=== PATIENT | female | born 1950 | race African-American/Black ===

== ENCOUNTER 2017-08-15 04:06 | Inpatient (IN) | payer MEDICARE, OTHER ==
[~2017-08-15] VITALS: Ht 160 cm; Wt 60.8 kg
[2017-08-15 04:36] LABS: Basophils # (auto) 0 uL; Basophils % (auto) 0.6 % (0.0-2.0); Eosinophils # (auto) 0.2 uL; Eosinophils % (auto) 1.9 % (0.0-7.0); Hematocrit 35.4 % (36.0-46.0); Hemoglobin 11.5 g/dL (12.2-16.2); Lymphocytes # (auto) 1.7 uL; Lymphocytes % (auto) 21.9 % (10.0-50.0); Mean Corpuscular Hemoglobin 27.9 pg (28.0-32.0); Mean Corpuscular Hgb Conc. 32.4 g/dL (32.0-36.0); Mean Corpuscular Volume 86.2 fL (80.0-100.0); Monocytes # (auto) 0.9 uL; Neutrophils % (auto) 63.6 % (37.0-80.0); Nucleated Red Blood Cells % 0.2 %; Platelet Count (auto) 125 10^3/uL (140-450); Red Cell Distribution Width 14.2 % (11.8-14.3); White Blood Cell 7.8 10^3/uL (4.4-10.8)
[2017-08-15 04:52] LABS: INR 1.16 (0.9-1.15); Partial Thromboplastin Time 26.5 sec (22.64-33.71); Prothrombin Time 12.7 sec (9.37-12.3)
[2017-08-15 04:54] LABS: Albumin 3.4 g/dL (3.4-5.0); BUN/Creatinine Ratio 19.1; Magnesium 2.3 mg/dL (1.6-2.6)
[2017-08-15 04:58] LABS: Bilirubin, Total 0.6 mg/dL (0.2-1.0); Total Protein 7.3 g/dL (6.4-8.2)
[2017-08-15] MEDS ORDERED: NALBUPHINE HCL 10 MG/1ml INJECTION IV ONE (05:45)
[2017-08-15] MEDS ORDERED: ONDANSETRON HCL 4 MG/2 ML VIAL IV ONE (05:45)
[2017-08-15] MEDS ORDERED: SODIUM CHLORIDE 0.9% 500 ML IV ONE (07:45)
[2017-08-15] MEDS ORDERED: FUROSEMIDE 40 MG/4 ML VIAL IV ONE (08:15)
[2017-08-15] MEDS ORDERED: ONDANSETRON HCL 4 MG/2 ML VIAL IV PRN (09:30)
[2017-08-15] MEDS ORDERED: NITROGLYCERIN 0.4 MG SL TAB SL PRN (09:30)
[2017-08-15] MEDS ORDERED: BUMETANIDE (0.25MG/ML) 4 ML VIAL IV ONE (09:30)
[2017-08-15] MEDS ORDERED: MORPHINE SULFATE 4 MG/ML SYR/VIAL IV PRN ×2 (09:30)
[2017-08-15] MEDS ORDERED: hydrALAZINE HCL 20 MG/ML VL IV PRN (09:30)
[2017-08-15] MEDS ORDERED: POTASSIUM CHL 10% (20 MEQ/15ML) 15ml ORAL SOLN PO ONE (09:30)
[2017-08-15] MEDS ORDERED: DEXTROSE (50%) 50ML SYRG IV PRN (09:30)
[2017-08-15 09:33] LABS: Urine Bacteria FEW /hpf (None Seen); Urine Blood Negative /uL (Negative); Urine Hyaline Cast FEW /lpf (0 - 2); Urine Mucus FEW (None Seen); Urine Specific Gravity 1.015 (1.001-1.035); Urine WBC 5 /hpf (0 - 5)
[2017-08-15] MEDS ORDERED: TRAZ100T2 PO (09:34)
[2017-08-15] MEDS ORDERED: CARV3.1240 PO (09:34)
[2017-08-15] MEDS ORDERED: FER325T PO (09:34)
[2017-08-15] MEDS ORDERED: ARIP1TAB15 PO (09:34)
[2017-08-15] MEDS ORDERED: FLUO20CA19 PO (09:34)
[2017-08-15] MEDS ORDERED: ATOR10TA52 PO (09:34)
[2017-08-15] MEDS ORDERED: APIX5TAB OR (09:34)
[2017-08-15] MEDS ORDERED: LISI2.5T47 PO (09:34)
[2017-08-15] MEDS ORDERED: FURO40TA4 PO (09:34)
[2017-08-15] MEDS ORDERED: ALB5IS NEB (09:34)
[2017-08-15] MEDS ORDERED: PATIENTS OWN MEDICATION (Atorvastatin Calcium 1 TAB) PO SCH (10:00)
[2017-08-15] MEDS ORDERED: LISINOPRIL 5 MG TAB PO SCH (10:00)
[2017-08-15] MEDS ORDERED: FLUOXETINE HCL PO SCH (10:00)
[2017-08-15] MEDS ORDERED: hydrALAZINE HCL 10 MG TAB PO ONE (10:00)
[2017-08-15] MEDS: ARIPIPRAZOLE 30 MG PO SCH (10:32)
[2017-08-15] MEDS: CARVEDILOL 3.125 MG TAB PO SCH ×2 (10:33→21:44)
[2017-08-15] MEDS ORDERED: BUMETANIDE (0.25 MG/ML) INJ 10ML IV ONE (10:45)
[2017-08-15] MEDS: FERROUS SULFATE 325 MG TAB PO SCH ×2 (10:47→21:42)
[2017-08-15] MEDS: FLUoxetine HCL 20 MG CAP PO SCH (10:48)
[2017-08-15] MEDS: APIXABAN 5 MG TAB PO SCH ×2 (10:48→21:43)
[2017-08-15] MEDS: InsuLIN REG 1unit/0.01ml Soln (100units/ml) SC SCH ×3 (11:30→22:00)
[2017-08-15] MEDS: ACCU-CHEK COMFORT CURVE STRIP VI SCH ×3 (11:35→22:26)
[2017-08-15] MEDS: ALBUTEROL SULF 2.5 MG/0.5ML(0.5%) NEB SOLN NEB SCH ×2 (12:00→18:00)
[2017-08-15] MEDS: IPRATROPIUM BROM 0.5 MG/2.5ML INH SOL NEB SCH ×2 (12:00→18:00)
[2017-08-15 13:21] LABS: Cholesterol 162 mg/dL (< 200); HDL Cholesterol 47 mg/dL (40-59); LDL Cholesterol 110 mg/dL (< 100); Triglycerides 95 mg/dL (< 150)
[2017-08-15] MEDS ORDERED: PATIENTS OWN MEDICATION (Trazodone Hcl 1 TAB) PO SCH (18:00)
[2017-08-15 18:20] VITALS: BP 106/75
[2017-08-15 19:29] VITALS: BP 151/82
[2017-08-15 20:00] VITALS: BP 133/82
[2017-08-15] MEDS: ATORVASTATIN 20 MG TAB PO SCH (21:42)
[2017-08-15] MEDS: traZODone HCL 50 MG TAB PO SCH (21:44)
[2017-08-15 22:00] VITALS: BP_SYST 105; BP_SYST 133; BP_DIAS 54; BP_DIAS 82
[2017-08-16] VITALS (7 sets, daily range): BP systolic 104–133; BP diastolic 57–82
[2017-08-16] MEDS: IPRATROPIUM BROM 0.5 MG/2.5ML INH SOL NEB SCH ×5 (00:08→23:56)
[2017-08-16] MEDS: ALBUTEROL SULF 2.5 MG/0.5ML(0.5%) NEB SOLN NEB SCH ×5 (00:08→23:56)
[2017-08-16 06:19] LABS: Basophils # (auto) 0 uL; Basophils % (auto) 0.4 % (0.0-2.0); Eosinophils # (auto) 0.4 uL; Eosinophils % (auto) 7.6 % (0.0-7.0); Hematocrit 33.3 % (36.0-46.0); Hemoglobin 10.9 g/dL (12.2-16.2); Lymphocytes # (auto) 1.3 uL; Mean Corpuscular Hemoglobin 28.4 pg (28.0-32.0); Mean Corpuscular Hgb Conc. 32.7 g/dL (32.0-36.0); Mean Corpuscular Volume 86.9 fL (80.0-100.0); Monocytes # (auto) 0.7 uL; Monocytes % (auto) 12.6 % (0.0-12.0); Neutrophils # (auto) 3.4 uL; Neutrophils % (auto) 57.4 % (37.0-80.0); Platelet Count (auto) 125 10^3/uL (140-450); Red Blood Cells 3.83 10^6/uL (4.0-5.20); Red Cell Distribution Width 14.9 % (11.8-14.3); White Blood Cell 5.9 10^3/uL (4.4-10.8)
[2017-08-16 06:30] LABS: Potassium 4.2 mmol/L (3.5-5.1)
[2017-08-16] MEDS: ACCU-CHEK COMFORT CURVE STRIP VI SCH ×4 (06:41→22:18)
[2017-08-16] MEDS: InsuLIN REG 1unit/0.01ml Soln (100units/ml) SC SCH ×4 (06:41→22:00)
[2017-08-16 06:42] LABS: Calcium 8.9 mg/dL (8.5-10.1)
[2017-08-16] MEDS: FUROSEMIDE 40 MG/4 ML VIAL IV SCH (09:25)
[2017-08-16] MEDS: ARIPIPRAZOLE 30 MG PO SCH (09:26)
[2017-08-16] MEDS: FERROUS SULFATE 325 MG TAB PO SCH ×2 (09:26→22:15)
[2017-08-16] MEDS: APIXABAN 5 MG TAB PO SCH ×2 (09:27→22:18)
[2017-08-16] MEDS: FLUoxetine HCL 20 MG CAP PO SCH (09:27)
[2017-08-16] MEDS: CARVEDILOL 3.125 MG TAB PO SCH ×2 (09:27→22:17)
[2017-08-16] MEDS: HYDROcodone-ACET 5/325MG TAB PO PRN (09:35)
[2017-08-16] MEDS ORDERED: INFLUENZA QUAD 2017-2018 0.5 ML SYRG IM ONE ×2 (09:57→19:00)
[2017-08-16 11:10] LABS: Creatinine, Urine 103 mg/dL (30.0-125.0); Sodium Urine 96 mmol/L (40-220)
[2017-08-16] MEDS ORDERED: PNEUMOCOCCAL VACC POLYS 25 MCG/0.5 ML VIAL IM ONE (19:00)
[2017-08-16] MEDS: ATORVASTATIN 20 MG TAB PO SCH (22:18)
[2017-08-16] MEDS: traZODone HCL 50 MG TAB PO SCH (22:18)
[2017-08-17 04:31] VITALS: BP 104/71
[2017-08-17] MEDS: IPRATROPIUM BROM 0.5 MG/2.5ML INH SOL NEB SCH ×2 (05:48→12:02)
[2017-08-17] MEDS: ALBUTEROL SULF 2.5 MG/0.5ML(0.5%) NEB SOLN NEB SCH ×2 (05:48→12:02)
[2017-08-17] MEDS: ACCU-CHEK COMFORT CURVE STRIP VI SCH ×3 (06:57→17:00)
[2017-08-17] MEDS: InsuLIN REG 1unit/0.01ml Soln (100units/ml) SC SCH ×3 (06:57→17:00)
[2017-08-17] MEDS: HYDROcodone-ACET 5/325MG TAB PO PRN (06:58)
[2017-08-17 08:46] VITALS: BP 102/71
[2017-08-17] MEDS: FUROSEMIDE 40 MG/4 ML VIAL IV SCH (09:24)
[2017-08-17] MEDS: FERROUS SULFATE 325 MG TAB PO SCH (09:24)
[2017-08-17] MEDS: APIXABAN 5 MG TAB PO SCH (09:25)
[2017-08-17] MEDS: FLUoxetine HCL 20 MG CAP PO SCH (09:25)
[2017-08-17] MEDS: CARVEDILOL 3.125 MG TAB PO SCH (09:26)
[2017-08-17] MEDS: ARIPIPRAZOLE 30 MG PO SCH (09:26)
[2017-08-17 12:12] VITALS: BP 102/71
[2017-08-17 12:28] VITALS: BP 92/72
== END 2017-08-17 17:30 | disposition home or self-care (01) | DRG 291 ==
LOC: ER 04:10 → TELE 04:11 → TELE-WESTW 14:40 → TELE-EAST 18:35
PROVIDERS: ADMIT Internal Medicine; ATTEND Internal Medicine
DX: I13.0 Hypertensive heart and chronic kidney disease with heart failure and stage 1 through stage 4 chronic kidney disease, or unspecified chronic kidney disease (principal); I50.23 Acute on chronic systolic (congestive) heart failure; J96.20 Acute and chronic respiratory failure, unspecified whether with hypoxia or hypercapnia; E11.22 Type 2 diabetes mellitus with diabetic chronic kidney disease; N18.3 Chronic kidney disease, stage 3 (moderate); D50.9 Iron deficiency anemia, unspecified; J44.9 Chronic obstructive pulmonary disease, unspecified; E78.5 Hyperlipidemia, unspecified; F32.9 Major depressive disorder, single episode, unspecified; G89.29 Other chronic pain; M54.9 Dorsalgia, unspecified; Z79.01 Long term (current) use of anticoagulants; I25.2 Old myocardial infarction; Z86.711 Personal history of pulmonary embolism; Z86.718 Personal history of other venous thrombosis and embolism; Z99.81 Dependence on supplemental oxygen; Z90.710 Acquired absence of both cervix and uterus; Z95.810 Presence of automatic (implantable) cardiac defibrillator
CPT/HCPCS: 36415; 71045; 80048; 80053; 80061; 81001; 82570; 82962; 83036; 83735; 83880; 84300; 84443; 84484; 85025; 85379; 85610; 85730; 93005; 93306; 94640; 96361; 96374; 96375; J2405

== ENCOUNTER 2017-08-25 06:53 | Emergency (ER) | payer MEDICARE, OTHER ==
[~2017-08-25] VITALS: Ht 160 cm; Wt 72.6 kg
[~2017-08-25 06:53] MED LIST: ALB5IS NEB; APIX5TAB OR; ARIP1TAB15 PO; ATOR10TA52 PO; CARV3.1240 PO; FER325T PO; FLUO20CA19 PO; FURO40TA4 PO; LISI2.5T47 PO; TRAZ100T2 PO
[2017-08-25 07:58] LABS: Basophils # (auto) 0 uL; Basophils % (auto) 0.3 % (0.0-2.0); Eosinophils # (auto) 0.2 uL; Eosinophils % (auto) 2.1 % (0.0-7.0); Hematocrit 35.3 % (36.0-46.0); Hemoglobin 11.6 g/dL (12.2-16.2); Lymphocytes # (auto) 1.5 uL; Lymphocytes % (auto) 15.2 % (10.0-50.0); Mean Corpuscular Hemoglobin 28.1 pg (28.0-32.0); Mean Corpuscular Hgb Conc. 32.8 g/dL (32.0-36.0); Mean Corpuscular Volume 85.6 fL (80.0-100.0); Monocytes # (auto) 1.6 uL; Monocytes % (auto) 15.5 % (0.0-12.0); Neutrophils # (auto) 6.7 uL; Neutrophils % (auto) 66.9 % (37.0-80.0); Platelet Count (auto) 133 10^3/uL (140-450); Red Blood Cells 4.12 10^6/uL (4.0-5.20); Red Cell Distribution Width 15.5 % (11.8-14.3); White Blood Cell 10.1 10^3/uL (4.4-10.8)
[2017-08-25 08:11] LABS: Albumin 3.5 g/dL (3.4-5.0); Calcium 8.8 mg/dL (8.5-10.1); Potassium 3.6 mmol/L (3.5-5.1)
[2017-08-25 08:13] LABS: BUN/Creatinine Ratio 16.2
[2017-08-25 08:16] LABS: Bilirubin, Total 0.6 mg/dL (0.2-1.0); Total Protein 7.2 g/dL (6.4-8.2)
[2017-08-25] MEDS ORDERED: FUROSEMIDE 20 MG/2 ML VIAL IV ONE (09:15)
[2017-08-25 11:43] VITALS: BP 152/95
== END 2017-08-25 13:19 | disposition home or self-care (01) ==
LOC: ER 06:53
DX: I11.0 Hypertensive heart disease with heart failure (principal); I50.23 Acute on chronic systolic (congestive) heart failure; G89.4 Chronic pain syndrome; J44.9 Chronic obstructive pulmonary disease, unspecified; Z86.711 Personal history of pulmonary embolism; Z79.899 Other long term (current) drug therapy
CPT/HCPCS: 36415; 80053; 83880; 85025; 93005; 96374; 99285; J1940

== ENCOUNTER 2017-09-09 17:45 | Inpatient (IN) | payer MEDICARE, OTHER ==
[~2017-09-09] VITALS: Ht 160 cm; Wt 82.7 kg
[2017-09-09 18:50] LABS: Basophils # (auto) 0 uL; Basophils % (auto) 0.5 % (0.0-2.0); Eosinophils # (auto) 0.1 uL; Eosinophils % (auto) 1.6 % (0.0-7.0); Hematocrit 32.6 % (36.0-46.0); Hemoglobin 10.7 g/dL (12.2-16.2); Lymphocytes # (auto) 1.1 uL; Lymphocytes % (auto) 15.5 % (10.0-50.0); Mean Corpuscular Hgb Conc. 32.8 g/dL (32.0-36.0); Mean Corpuscular Volume 85.4 fL (80.0-100.0); Monocytes # (auto) 0.6 uL; Monocytes % (auto) 9.2 % (0.0-12.0); Neutrophils % (auto) 73.2 % (37.0-80.0); Nucleated Red Blood Cells % 0.2 %; Platelet Count (auto) 139 10^3/uL (140-450); Red Blood Cells 3.81 10^6/uL (4.0-5.20); Red Cell Distribution Width 14.8 % (11.8-14.3); White Blood Cell 6.9 10^3/uL (4.4-10.8)
[2017-09-09 18:54] LABS: INR 1.23 (0.9-1.15); Partial Thromboplastin Time 28.6 sec (22.64-33.71); Prothrombin Time 13.4 sec (9.37-12.3)
[2017-09-09 19:19] LABS: BUN/Creatinine Ratio 16.1; Potassium 3.7 mmol/L (3.5-5.1)
[2017-09-09 19:20] LABS: Albumin 3.4 g/dL (3.4-5.0); Bilirubin, Total 1.1 mg/dL (0.2-1.0); Calcium 8.6 mg/dL (8.5-10.1); Total Protein 7.4 g/dL (6.4-8.2)
[2017-09-09] MEDS ORDERED: ALBUTEROL SULF 2.5 MG/0.5ML(0.5%) NEB SOLN HHN ONE (20:00)
[2017-09-09] MEDS ORDERED: IPRATROPIUM BROM 0.5 MG/2.5ML INH SOL HHN ONE (20:00)
[2017-09-09] MEDS ORDERED: methylPREDNISolone SOD SUCC 125 MG/2 ML VL IV ONE (20:00)
[2017-09-09] MEDS ORDERED: MORPHINE SULFATE 4 MG/ML SYR/VIAL IV ONE (20:45)
[2017-09-09] MEDS ORDERED: ONDANSETRON HCL 4 MG/2 ML VIAL IV ONE (20:45)
[2017-09-09] MEDS ORDERED: cefTRIAXone 1GM/10ml IVPUSH 10 ML IV ONE (21:15)
[2017-09-09] MEDS ORDERED: NITROGLYCERIN 0.4 MG SL TAB SL PRN (21:30)
[2017-09-09] MEDS ORDERED: MORPHINE SULFATE 4 MG/ML SYR/VIAL IV PRN (21:30)
[2017-09-09] MEDS ORDERED: ALBUTEROL SULF 2.5 MG/0.5ML(0.5%) NEB SOLN NEB PRN (21:30)
[2017-09-09] MEDS ORDERED: AZITHROMYCIN 500MG/ 250ML 250 ML IV ONE (21:30)
[2017-09-09] MEDS ORDERED: ACETAMINOPHEN 325 MG TAB PO PRN (21:30)
[2017-09-09] MEDS ORDERED: TEMAZEPAM 15 MG CAP PO PRN (21:30)
[2017-09-09] MEDS ORDERED: FUROSEMIDE 20 MG/2 ML VIAL IV ONE (21:30)
[2017-09-09] MEDS: ATORVASTATIN 20 MG TAB PO SCH (22:00)
[2017-09-09] MEDS: CARVEDILOL 3.125 MG TAB PO SCH (22:00)
[2017-09-09] MEDS: APIXABAN 5 MG TAB PO SCH (22:00)
[2017-09-09 23:15] VITALS: BP 127/92
[2017-09-10] VITALS (8 sets, daily range): BP systolic 97–130; BP diastolic 58–87
[2017-09-10] MEDS ORDERED: DEXTROSE (50%) 50ML SYRG IV PRN (00:15)
[2017-09-10 05:27] LABS: Basophils # (auto) 0 uL; Basophils % (auto) 0.1 % (0.0-2.0); Eosinophils # (auto) 0 uL; Hematocrit 34.1 % (36.0-46.0); Lymphocytes # (auto) 0.6 uL; Lymphocytes % (auto) 9.8 % (10.0-50.0); Mean Corpuscular Hemoglobin 27.8 pg (28.0-32.0); Mean Corpuscular Hgb Conc. 32.3 g/dL (32.0-36.0); Mean Corpuscular Volume 85.9 fL (80.0-100.0); Monocytes # (auto) 0.1 uL; Monocytes % (auto) 1.1 % (0.0-12.0); Neutrophils # (auto) 5.8 uL; Nucleated Red Blood Cells % 0.1 %; Platelet Count (auto) 146 10^3/uL (140-450); Red Blood Cells 3.97 10^6/uL (4.0-5.20); Red Cell Distribution Width 14.8 % (11.8-14.3); White Blood Cell 6.5 10^3/uL (4.4-10.8)
[2017-09-10 05:43] LABS: Albumin 3.4 g/dL (3.4-5.0); BUN/Creatinine Ratio 18.8; Bilirubin, Total 0.6 mg/dL (0.2-1.0); Calcium 8.6 mg/dL (8.5-10.1); Potassium 4.4 mmol/L (3.5-5.1); Total Protein 7.5 g/dL (6.4-8.2)
[2017-09-10] MEDS ORDERED: FUROSEMIDE 40 MG TAB PO SCH (06:00)
[2017-09-10] MEDS: InsuLIN REG 1unit/0.01ml Soln (100units/ml) SC SCH ×3 (06:00→17:36)
[2017-09-10] MEDS: ACCU-CHEK COMFORT CURVE STRIP VI SCH ×3 (06:15→17:36)
[2017-09-10] MEDS: APIXABAN 5 MG TAB PO SCH ×2 (09:25→21:58)
[2017-09-10] MEDS: PANTOPRAZOLE 40 MG TAB PO SCH (09:26)
[2017-09-10] MEDS: CARVEDILOL 3.125 MG TAB PO SCH ×2 (09:26→21:57)
[2017-09-10] MEDS: LISINOPRIL 5 MG TAB PO SCH (09:27)
[2017-09-10] MEDS ORDERED: ENOXAPARIN SOD 30 MG/0.3 ML SYRINGE SC SCH (10:00)
[2017-09-10 11:31] LABS: Urine Bacteria NONE SEEN /hpf (None Seen); Urine Blood Negative /uL (Negative); Urine Hyaline Cast MOD /lpf (0 - 2); Urine Specific Gravity 1.008 (1.001-1.035); Urine WBC 5 /hpf (0 - 5)
[2017-09-10] MEDS: OSELTAMIVIR 30 MG CAP PO SCH (17:35)
[2017-09-10] MEDS: FUROSEMIDE 40 MG/4 ML VIAL IV SCH (17:35)
[2017-09-10] MEDS: cefTRIAXone 1GM/10ml IVPUSH 10 ML IV SCH (21:57)
[2017-09-10] MEDS: HYDROcodone-ACET 5/325MG TAB PO PRN (21:58)
[2017-09-10] MEDS: ATORVASTATIN 20 MG TAB PO SCH (21:58)
[2017-09-10] MEDS: AZITHROMYCIN 500MG/ 250ML 250 ML IV SCH (21:58)
[2017-09-10] MEDS ORDERED: OSELTAMIVIR 75 MG CAP PO SCH (22:00)
[2017-09-11] MEDS: ACCU-CHEK COMFORT CURVE STRIP VI SCH ×5 (00:38→23:26)
[2017-09-11] MEDS: InsuLIN REG 1unit/0.01ml Soln (100units/ml) SC SCH ×5 (00:38→23:25)
[2017-09-11 05:00] VITALS: BP 95/64
[2017-09-11] MEDS: FUROSEMIDE 40 MG/4 ML VIAL IV SCH (05:55)
[2017-09-11 08:01] VITALS: BP 95/64
[2017-09-11 08:08] VITALS: BP 94/71
[2017-09-11] MEDS: LISINOPRIL 5 MG TAB PO SCH (09:44)
[2017-09-11] MEDS: POTASSIUM CHL 10% (20 MEQ/15ML) 15ml ORAL SOLN PO SCH (10:00)
[2017-09-11] MEDS ORDERED: SODIUM CHLORIDE 0.9% 1,000 ML IV ONE ×2 (10:00)
[2017-09-11] MEDS: APIXABAN 5 MG TAB PO SCH ×2 (10:33→22:05)
[2017-09-11] MEDS: CARVEDILOL 3.125 MG TAB PO SCH ×2 (10:33→22:05)
[2017-09-11] MEDS: OSELTAMIVIR 30 MG CAP PO SCH (10:34)
[2017-09-11] MEDS: PANTOPRAZOLE 40 MG TAB PO SCH (10:34)
[2017-09-11 11:25] VITALS: BP 109/46
[2017-09-11 17:10] VITALS: BP 92/72
[2017-09-11] MEDS: HYDROcodone-ACET 5/325MG TAB PO PRN ×2 (17:47→23:26)
[2017-09-11 22:00] VITALS: BP 118/70
[2017-09-11] MEDS: cefTRIAXone 1GM/10ml IVPUSH 10 ML IV SCH (22:04)
[2017-09-11] MEDS: AZITHROMYCIN 500MG/ 250ML 250 ML IV SCH (22:04)
[2017-09-11] MEDS: ATORVASTATIN 20 MG TAB PO SCH (22:05)
[2017-09-12 05:00] VITALS: BP 104/67
[2017-09-12] MEDS: ACCU-CHEK COMFORT CURVE STRIP VI SCH ×4 (05:42→23:57)
[2017-09-12] MEDS: InsuLIN REG 1unit/0.01ml Soln (100units/ml) SC SCH ×4 (05:42→23:56)
[2017-09-12 08:00] VITALS: BP 118/70
[2017-09-12 09:27] VITALS: BP 130/75
[2017-09-12] MEDS: POTASSIUM CHL 10% (20 MEQ/15ML) 15ml ORAL SOLN PO SCH (10:00)
[2017-09-12] MEDS: LISINOPRIL 5 MG TAB PO SCH (11:37)
[2017-09-12] MEDS: PANTOPRAZOLE 40 MG TAB PO SCH (11:37)
[2017-09-12] MEDS: CARVEDILOL 3.125 MG TAB PO SCH ×2 (11:38→22:57)
[2017-09-12] MEDS: APIXABAN 5 MG TAB PO SCH ×2 (11:38→22:58)
[2017-09-12] MEDS: OSELTAMIVIR 30 MG CAP PO SCH (11:38)
[2017-09-12 12:10] VITALS: BP 117/88
[2017-09-12 16:30] VITALS: BP 125/77
[2017-09-12] MEDS: ALBUTEROL SULF 2.5 MG/0.5ML(0.5%) NEB SOLN NEB PRN (20:50)
[2017-09-12] MEDS: IPRATROPIUM BROM 0.5 MG/2.5ML INH SOL NEB PRN (20:50)
[2017-09-12 22:00] VITALS: BP 119/74
[2017-09-12] MEDS: cefTRIAXone 1GM/10ml IVPUSH 10 ML IV SCH (22:00)
[2017-09-12] MEDS: AZITHROMYCIN 500MG/ 250ML 250 ML IV SCH (22:56)
[2017-09-12] MEDS: ATORVASTATIN 20 MG TAB PO SCH (22:57)
[2017-09-13] MEDS ORDERED: MORPHINE SULFATE 4 MG/ML SYR/VIAL IV ONE (00:30)
[2017-09-13 05:00] VITALS: BP 106/72
[2017-09-13] MEDS: InsuLIN REG 1unit/0.01ml Soln (100units/ml) SC SCH ×3 (06:00→18:43)
[2017-09-13] MEDS: ACCU-CHEK COMFORT CURVE STRIP VI SCH ×3 (06:00→18:42)
[2017-09-13 06:47] LABS: Basophils # (auto) 0 uL; Basophils % (auto) 0.4 % (0.0-2.0); Eosinophils # (auto) 0 uL; Eosinophils % (auto) 0.2 % (0.0-7.0); Hematocrit 32.2 % (36.0-46.0); Hemoglobin 10.4 g/dL (12.2-16.2); Lymphocytes # (auto) 1.3 uL; Lymphocytes % (auto) 13.1 % (10.0-50.0); Mean Corpuscular Hemoglobin 28.3 pg (28.0-32.0); Mean Corpuscular Hgb Conc. 32.3 g/dL (32.0-36.0); Mean Corpuscular Volume 87.5 fL (80.0-100.0); Monocytes # (auto) 1.7 uL; Monocytes % (auto) 16.7 % (0.0-12.0); Neutrophils # (auto) 7.1 uL; Neutrophils % (auto) 69.6 % (37.0-80.0); Nucleated Red Blood Cells % 0.1 %; Platelet Count (auto) 157 10^3/uL (140-450); Red Blood Cells 3.68 10^6/uL (4.0-5.20); Red Cell Distribution Width 15.8 % (11.8-14.3); White Blood Cell 10.2 10^3/uL (4.4-10.8)
[2017-09-13 07:02] LABS: Albumin 3.2 g/dL (3.4-5.0); BUN/Creatinine Ratio 23.7; Calcium 8.5 mg/dL (8.5-10.1)
[2017-09-13 07:10] LABS: Bilirubin, Total 0.3 mg/dL (0.2-1.0); Total Protein 6.5 g/dL (6.4-8.2)
[2017-09-13 07:39] VITALS: BP 106/72
[2017-09-13 08:18] VITALS: BP 113/84
[2017-09-13] MEDS: POTASSIUM CHL 10% (20 MEQ/15ML) 15ml ORAL SOLN PO SCH (09:31)
[2017-09-13] MEDS: OSELTAMIVIR 30 MG CAP PO SCH (09:35)
[2017-09-13] MEDS: PANTOPRAZOLE 40 MG TAB PO SCH (09:35)
[2017-09-13] MEDS: APIXABAN 5 MG TAB PO SCH ×2 (09:36→22:54)
[2017-09-13] MEDS: VALSARTAN 80 MG TAB PO SCH (09:37)
[2017-09-13] MEDS: CARVEDILOL 3.125 MG TAB PO SCH ×2 (09:38→22:00)
[2017-09-13] MEDS ORDERED: LISINOPRIL 5 MG TAB PO SCH (10:00)
[2017-09-13 12:00] VITALS: BP 107/72
[2017-09-13 17:00] VITALS: BP 109/72
[2017-09-13 21:21] VITALS: BP 110/74
[2017-09-13] MEDS: DOXYCYCLINE 100 MG TAB/CAP PO SCH (22:53)
[2017-09-13] MEDS: ATORVASTATIN 20 MG TAB PO SCH (22:54)
[2017-09-13] MEDS: cefTRIAXone 1GM/10ml IVPUSH 10 ML IV SCH (22:54)
[2017-09-13] MEDS: ONDANSETRON HCL 4 MG/2 ML VIAL IV PRN (22:55)
[2017-09-13] MEDS: ALBUTEROL SULF 2.5 MG/0.5ML(0.5%) NEB SOLN NEB PRN (23:07)
[2017-09-13] MEDS: IPRATROPIUM BROM 0.5 MG/2.5ML INH SOL NEB PRN (23:07)
[2017-09-14] MEDS: ONDANSETRON HCL 4 MG/2 ML VIAL IV PRN (04:21)
[2017-09-14 05:41] VITALS: BP 126/90
[2017-09-14 05:57] LABS: Basophils # (auto) 0 uL; Basophils % (auto) 0.3 % (0.0-2.0); Eosinophils # (auto) 0.3 uL; Eosinophils % (auto) 4.6 % (0.0-7.0); Hematocrit 33.2 % (36.0-46.0); Hemoglobin 10.6 g/dL (12.2-16.2); Lymphocytes # (auto) 1.6 uL; Lymphocytes % (auto) 27.5 % (10.0-50.0); Mean Corpuscular Hemoglobin 28.2 pg (28.0-32.0); Mean Corpuscular Volume 88.3 fL (80.0-100.0); Monocytes # (auto) 0.8 uL; Monocytes % (auto) 14.1 % (0.0-12.0); Neutrophils # (auto) 3.1 uL; Neutrophils % (auto) 53.5 % (37.0-80.0); Nucleated Red Blood Cells % 0.3 %; Platelet Count (auto) 151 10^3/uL (140-450); Red Blood Cells 3.76 10^6/uL (4.0-5.20); White Blood Cell 5.8 10^3/uL (4.4-10.8)
[2017-09-14] MEDS: ACCU-CHEK COMFORT CURVE STRIP VI SCH ×5 (06:00→23:50)
[2017-09-14] MEDS: InsuLIN REG 1unit/0.01ml Soln (100units/ml) SC SCH ×5 (06:00→23:50)
[2017-09-14 06:08] LABS: Albumin 3.2 g/dL (3.4-5.0); BUN/Creatinine Ratio 24.6; Bilirubin, Total 0.4 mg/dL (0.2-1.0); Calcium 8.7 mg/dL (8.5-10.1); Potassium 4.6 mmol/L (3.5-5.1); Total Protein 6.7 g/dL (6.4-8.2)
[2017-09-14 10:03] VITALS: BP 113/82
[2017-09-14] MEDS: PANTOPRAZOLE 40 MG TAB PO SCH (10:19)
[2017-09-14] MEDS: DOXYCYCLINE 100 MG TAB/CAP PO SCH ×2 (10:20→22:08)
[2017-09-14] MEDS: APIXABAN 5 MG TAB PO SCH ×2 (10:21→22:08)
[2017-09-14] MEDS: VALSARTAN 80 MG TAB PO SCH (10:21)
[2017-09-14] MEDS: CARVEDILOL 3.125 MG TAB PO SCH ×2 (10:22→22:09)
[2017-09-14] MEDS: POTASSIUM CHL 10% (20 MEQ/15ML) 15ml ORAL SOLN PO SCH (10:23)
[2017-09-14] MEDS: OSELTAMIVIR 30 MG CAP PO SCH (11:20)
[2017-09-14 13:00] VITALS: BP 118/75
[2017-09-14 17:23] VITALS: BP 133/72
[2017-09-14 20:00] VITALS: BP 135/51
[2017-09-14] MEDS ORDERED: HYDROcodone-ACET 10/325MG TAB PO PRN (20:30)
[2017-09-14 22:00] VITALS: BP 135/51
[2017-09-14] MEDS: traMADol HCL 50 MG TAB PO PRN (22:08)
[2017-09-14] MEDS: cefTRIAXone 1GM/10ml IVPUSH 10 ML IV SCH (22:08)
[2017-09-14] MEDS: ATORVASTATIN 20 MG TAB PO SCH (22:08)
[2017-09-15 05:00] VITALS: BP 120/87
[2017-09-15 05:08] LABS: Basophils # (auto) 0 uL; Basophils % (auto) 0.6 % (0.0-2.0); Eosinophils # (auto) 0.2 uL; Eosinophils % (auto) 3.1 % (0.0-7.0); Hematocrit 34.3 % (36.0-46.0); Lymphocytes # (auto) 1.8 uL; Lymphocytes % (auto) 27.6 % (10.0-50.0); Mean Corpuscular Volume 87.5 fL (80.0-100.0); Monocytes # (auto) 0.8 uL; Monocytes % (auto) 12.2 % (0.0-12.0); Neutrophils # (auto) 3.6 uL; Neutrophils % (auto) 56.5 % (37.0-80.0); Nucleated Red Blood Cells % 0.5 %; Platelet Count (auto) 158 10^3/uL (140-450); Red Blood Cells 3.93 10^6/uL (4.0-5.20); Red Cell Distribution Width 16.3 % (11.8-14.3); White Blood Cell 6.3 10^3/uL (4.4-10.8)
[2017-09-15 05:27] LABS: Albumin 3.3 g/dL (3.4-5.0); BUN/Creatinine Ratio 20.5; Calcium 8.9 mg/dL (8.5-10.1); Potassium 5.3 mmol/L (3.5-5.1)
[2017-09-15 05:31] LABS: Bilirubin, Total 0.7 mg/dL (0.2-1.0); Total Protein 6.8 g/dL (6.4-8.2)
[2017-09-15] MEDS: ACCU-CHEK COMFORT CURVE STRIP VI SCH ×2 (06:00→12:02)
[2017-09-15] MEDS: InsuLIN REG 1unit/0.01ml Soln (100units/ml) SC SCH ×2 (06:00→12:03)
[2017-09-15 08:00] VITALS: BP 130/89
[2017-09-15] MEDS: POTASSIUM CHL 10% (20 MEQ/15ML) 15ml ORAL SOLN PO SCH (10:00)
[2017-09-15] MEDS: VALSARTAN 80 MG TAB PO SCH (10:00)
[2017-09-15 10:32] VITALS: BP 130/89
[2017-09-15] MEDS: traMADol HCL 50 MG TAB PO PRN (10:36)
[2017-09-15] MEDS: APIXABAN 5 MG TAB PO SCH (10:37)
[2017-09-15] MEDS: CARVEDILOL 3.125 MG TAB PO SCH (10:37)
[2017-09-15] MEDS: PANTOPRAZOLE 40 MG TAB PO SCH (10:37)
[2017-09-15] MEDS: DOXYCYCLINE 100 MG TAB/CAP PO SCH (10:38)
[2017-09-15 12:00] VITALS: BP 118/85
== END 2017-09-15 17:05 | disposition home or self-care (01) | DRG 291 ==
LOC: ER 17:55 → TELE 17:56 → TELE-CENTR 23:10
PROVIDERS: ADMIT Nurse Practitioner; ATTEND Family Medicine
DX: I50.43 Acute on chronic combined systolic (congestive) and diastolic (congestive) heart failure (principal); J10.08 Influenza due to other identified influenza virus with other specified pneumonia; N17.9 Acute kidney failure, unspecified; E86.0 Dehydration; E11.22 Type 2 diabetes mellitus with diabetic chronic kidney disease; N18.3 Chronic kidney disease, stage 3 (moderate); I27.21 Secondary pulmonary arterial hypertension; I25.110 Atherosclerotic heart disease of native coronary artery with unstable angina pectoris; J44.0 Chronic obstructive pulmonary disease with (acute) lower respiratory infection; J44.1 Chronic obstructive pulmonary disease with (acute) exacerbation; I13.0 Hypertensive heart and chronic kidney disease with heart failure and stage 1 through stage 4 chronic kidney disease, or unspecified chronic kidney disease; N39.0 Urinary tract infection, site not specified; R79.89 Other specified abnormal findings of blood chemistry; F41.9 Anxiety disorder, unspecified; D50.9 Iron deficiency anemia, unspecified; G47.00 Insomnia, unspecified; I25.5 Ischemic cardiomyopathy; J10.1 Influenza due to other identified influenza virus with other respiratory manifestations; Z86.711 Personal history of pulmonary embolism; Z95.810 Presence of automatic (implantable) cardiac defibrillator; Z99.81 Dependence on supplemental oxygen; Z79.899 Other long term (current) drug therapy; Z71.3 Dietary counseling and surveillance
CPT/HCPCS: 36415; 71045; 71046; 74176; 76705; 78226; 80053; 81001; 82962; 83605; 83735; 83880; 84484; 85025; 85610; 85730; 87040; 87081; 87804; 93005; 94640; 94761; 96365; 96375; G9035; J1815; J2405

== ENCOUNTER 2017-10-27 04:31 | Inpatient (IN) | payer MEDICARE, OTHER ==
[~2017-10-27] VITALS: Ht 160 cm; Wt 76.7 kg
[2017-10-27] MEDS ORDERED: FUROSEMIDE 40 MG/4 ML VIAL IV ONE (07:00)
[2017-10-27] MEDS ORDERED: ASPirin 81 mg TAB PO ONE (07:00)
[2017-10-27 07:02] LABS: Potassium 4.6 mmol/L (3.5-5.1)
[2017-10-27 07:06] LABS: Basophils # (auto) 0 uL; Basophils % (auto) 0.3 % (0.0-2.0); Eosinophils # (auto) 0 uL; Eosinophils % (auto) 0.4 % (0.0-7.0); Hematocrit 40.8 % (36.0-46.0); Hemoglobin 13.2 g/dL (12.2-16.2); Lymphocytes # (auto) 0.9 uL; Mean Corpuscular Hgb Conc. 32.3 g/dL (32.0-36.0); Mean Corpuscular Volume 89.9 fL (80.0-100.0); Monocytes # (auto) 0.8 uL; Monocytes % (auto) 13.2 % (0.0-12.0); Neutrophils # (auto) 4.3 uL; Neutrophils % (auto) 71.1 % (37.0-80.0); Nucleated Red Blood Cells % 0.1 %; Platelet Count (auto) 173 10^3/uL (140-450); Red Blood Cells 4.54 10^6/uL (4.0-5.20); Red Cell Distribution Width 17.9 % (11.8-14.3)
[2017-10-27 07:07] LABS: Albumin 3.2 g/dL (3.4-5.0); BUN/Creatinine Ratio 19.4; Calcium 8.9 mg/dL (8.5-10.1); Magnesium 2.3 mg/dL (1.6-2.6)
[2017-10-27 07:12] LABS: Bilirubin, Total 1.7 mg/dL (0.2-1.0); Total Protein 6.9 g/dL (6.4-8.2)
[2017-10-27] MEDS ORDERED: cloNIDine HCL 0.1 MG TAB PO PRN (14:30)
[2017-10-27] MEDS ORDERED: DOCUSATE SOD 100 MG CAP PO PRN (14:30)
[2017-10-27] MEDS ORDERED: TEMAZEPAM 15 MG CAP PO PRN (14:30)
[2017-10-27] MEDS ORDERED: DEXTROSE (50%) 50ML SYRG IV PRN (14:30)
[2017-10-27] MEDS ORDERED: MORPHINE SULFATE 8mg/ml INJ SDV IV PRN (14:30)
[2017-10-27] MEDS ORDERED: ONDANSETRON HCL 4 MG/2 ML VIAL IV PRN (14:30)
[2017-10-27] MEDS ORDERED: ALBUTEROL SULF 2.5 MG/0.5ML(0.5%) NEB SOLN NEB PRN (14:30)
[2017-10-27] MEDS ORDERED: NITROGLYCERIN 0.4 MG SL TAB SL PRN (14:30)
[2017-10-27] MEDS ORDERED: HYDROcodone-ACET 5/325MG TAB PO PRN (14:30)
[2017-10-27 14:51] VITALS: BP 117/85
[2017-10-27] MEDS: ACCU-CHEK COMFORT CURVE STRIP VI SCH ×2 (16:29→22:19)
[2017-10-27] MEDS: InsuLIN REG 1unit/0.01ml Soln (100units/ml) SC SCH ×2 (16:31→22:19)
[2017-10-27] MEDS: FUROSEMIDE 40 MG TAB PO SCH (18:28)
[2017-10-27] MEDS: FERROUS SULFATE 325 MG TAB PO SCH (18:28)
[2017-10-27] MEDS: MORPHINE SULFATE 8mg/ml INJ SDV IV PRN (18:33)
[2017-10-27 19:13] LABS: Urine Bacteria NONE SEEN /hpf (None Seen); Urine Blood Negative /uL (Negative); Urine Hyaline Cast MOD /lpf (0 - 2); Urine Mucus FEW (None Seen); Urine Specific Gravity 1.009 (1.001-1.035); Urine WBC 1 /hpf (0 - 5)
[2017-10-27 20:00] VITALS: BP 149/90
[2017-10-27 22:00] VITALS: BP 125/91
[2017-10-27] MEDS ORDERED: FAMOTIDINE 20 MG TAB PO SCH (22:00)
[2017-10-27] MEDS: ATORVASTATIN 20 MG TAB PO SCH (22:08)
[2017-10-27] MEDS: APIXABAN 5 MG TAB PO SCH (22:08)
[2017-10-27] MEDS: CARVEDILOL 3.125 MG TAB PO SCH (22:08)
[2017-10-27] MEDS: traZODone HCL 50 MG TAB PO SCH (22:08)
[2017-10-27] MEDS: SODIUM CHLOR 0.9% PF (SALINE LOCK) 10ML VIAL/SYR IV SCH (22:18)
[2017-10-28] VITALS (7 sets, daily range): BP systolic 93–114; BP diastolic 65–83
[2017-10-28] MEDS: SODIUM CHLOR 0.9% PF (SALINE LOCK) 10ML VIAL/SYR IV SCH ×3 (06:29→22:05)
[2017-10-28] MEDS: InsuLIN REG 1unit/0.01ml Soln (100units/ml) SC SCH ×4 (06:29→22:25)
[2017-10-28] MEDS: ACCU-CHEK COMFORT CURVE STRIP VI SCH ×4 (06:29→22:25)
[2017-10-28] MEDS: FUROSEMIDE 40 MG TAB PO SCH ×2 (06:31→18:00)
[2017-10-28 07:05] LABS: Basophils # (auto) 0 uL; Basophils % (auto) 0.3 % (0.0-2.0); Eosinophils # (auto) 0.2 uL; Eosinophils % (auto) 3.7 % (0.0-7.0); Hematocrit 42.6 % (36.0-46.0); Hemoglobin 13.4 g/dL (12.2-16.2); Lymphocytes # (auto) 1.2 uL; Lymphocytes % (auto) 21.8 % (10.0-50.0); Mean Corpuscular Hemoglobin 28.4 pg (28.0-32.0); Mean Corpuscular Hgb Conc. 31.5 g/dL (32.0-36.0); Mean Corpuscular Volume 90.2 fL (80.0-100.0); Monocytes # (auto) 0.7 uL; Neutrophils # (auto) 3.3 uL; Neutrophils % (auto) 61.2 % (37.0-80.0); Platelet Count (auto) 171 10^3/uL (140-450); Red Blood Cells 4.72 10^6/uL (4.0-5.20); Red Cell Distribution Width 18.3 % (11.8-14.3); White Blood Cell 5.4 10^3/uL (4.4-10.8)
[2017-10-28 07:26] LABS: BUN/Creatinine Ratio 19.2; Calcium 8.8 mg/dL (8.5-10.1); Potassium 4.2 mmol/L (3.5-5.1)
[2017-10-28 07:29] LABS: Bilirubin, Total 1.5 mg/dL (0.2-1.0); Total Protein 6.5 g/dL (6.4-8.2)
[2017-10-28] MEDS: MORPHINE SULFATE 8mg/ml INJ SDV IV PRN ×3 (08:47→20:26)
[2017-10-28] MEDS: CARVEDILOL 3.125 MG TAB PO SCH ×3 (08:48→22:20)
[2017-10-28] MEDS: MULTIPLE VITAMIN TAB PO SCH (08:48)
[2017-10-28] MEDS: FLUoxetine HCL 20 MG CAP PO SCH (08:49)
[2017-10-28] MEDS: PANTOPRAZOLE 40 MG TAB PO SCH (08:49)
[2017-10-28] MEDS: APIXABAN 5 MG TAB PO SCH ×2 (08:49→22:06)
[2017-10-28] MEDS: FERROUS SULFATE 325 MG TAB PO SCH ×2 (08:49→18:55)
[2017-10-28] MEDS: LISINOPRIL 5 MG TAB PO SCH (08:52)
[2017-10-28] MEDS: traZODone HCL 50 MG TAB PO SCH (22:05)
[2017-10-28] MEDS: ATORVASTATIN 20 MG TAB PO SCH (22:05)
[2017-10-29 05:00] VITALS: BP 107/76
[2017-10-29] MEDS: SODIUM CHLOR 0.9% PF (SALINE LOCK) 10ML VIAL/SYR IV SCH ×3 (06:00→21:36)
[2017-10-29] MEDS: FUROSEMIDE 40 MG TAB PO SCH (06:45)
[2017-10-29] MEDS: ACCU-CHEK COMFORT CURVE STRIP VI SCH ×4 (06:55→21:37)
[2017-10-29] MEDS: InsuLIN REG 1unit/0.01ml Soln (100units/ml) SC SCH ×4 (06:55→21:46)
[2017-10-29 06:59] LABS: Basophils # (auto) 0 uL; Basophils % (auto) 0.5 % (0.0-2.0); Eosinophils # (auto) 0.3 uL; Eosinophils % (auto) 5.2 % (0.0-7.0); Hematocrit 39.6 % (36.0-46.0); Hemoglobin 12.9 g/dL (12.2-16.2); Lymphocytes # (auto) 1.3 uL; Lymphocytes % (auto) 20.5 % (10.0-50.0); Mean Corpuscular Hemoglobin 29.2 pg (28.0-32.0); Mean Corpuscular Hgb Conc. 32.7 g/dL (32.0-36.0); Mean Corpuscular Volume 89.5 fL (80.0-100.0); Monocytes % (auto) 15.9 % (0.0-12.0); Neutrophils # (auto) 3.6 uL; Neutrophils % (auto) 57.9 % (37.0-80.0); Nucleated Red Blood Cells % 0.2 %; Platelet Count (auto) 157 10^3/uL (140-450); Red Blood Cells 4.43 10^6/uL (4.0-5.20); Red Cell Distribution Width 17.9 % (11.8-14.3); White Blood Cell 6.2 10^3/uL (4.4-10.8)
[2017-10-29 07:32] LABS: Bilirubin, Total 1.1 mg/dL (0.2-1.0); Calcium 8.4 mg/dL (8.5-10.1); Total Protein 6.2 g/dL (6.4-8.2)
[2017-10-29 07:40] LABS: Albumin 2.7 g/dL (3.4-5.0)
[2017-10-29 08:00] VITALS: BP 91/73
[2017-10-29] MEDS: FLUoxetine HCL 20 MG CAP PO SCH (08:54)
[2017-10-29] MEDS: MULTIPLE VITAMIN TAB PO SCH (08:54)
[2017-10-29] MEDS: FERROUS SULFATE 325 MG TAB PO SCH ×2 (08:54→18:06)
[2017-10-29] MEDS: PANTOPRAZOLE 40 MG TAB PO SCH (08:54)
[2017-10-29] MEDS: APIXABAN 5 MG TAB PO SCH ×2 (08:54→21:36)
[2017-10-29 09:00] VITALS: BP 91/73
[2017-10-29] MEDS: LISINOPRIL 5 MG TAB PO SCH (10:00)
[2017-10-29] MEDS: CARVEDILOL 3.125 MG TAB PO SCH ×2 (10:00→21:36)
[2017-10-29] MEDS ORDERED: SODIUM CHLORIDE 0.9% 250 ML IV ONE ×2 (12:30→16:00)
[2017-10-29] MEDS ORDERED: FUROSEMIDE 40 MG/4 ML VIAL IV ONE (12:45)
[2017-10-29 13:21] VITALS: BP 84/47
[2017-10-29 17:00] VITALS: BP 86/57
[2017-10-29] MEDS: ACETAMINOPHEN 325 MG TAB PO PRN (20:21)
[2017-10-29] MEDS: traZODone HCL 50 MG TAB PO SCH (21:35)
[2017-10-29] MEDS: ATORVASTATIN 20 MG TAB PO SCH (21:35)
[2017-10-29 22:00] VITALS: BP 97/76
[2017-10-30] MEDS: ACETAMINOPHEN 325 MG TAB PO PRN (04:31)
[2017-10-30 05:00] VITALS: BP 95/64
[2017-10-30] MEDS: ACCU-CHEK COMFORT CURVE STRIP VI SCH ×2 (06:12→11:30)
[2017-10-30] MEDS: SODIUM CHLOR 0.9% PF (SALINE LOCK) 10ML VIAL/SYR IV SCH (06:12)
[2017-10-30] MEDS: InsuLIN REG 1unit/0.01ml Soln (100units/ml) SC SCH ×2 (06:16→11:30)
[2017-10-30 07:37] LABS: Albumin 2.5 g/dL (3.4-5.0); Calcium 8.5 mg/dL (8.5-10.1); Potassium 3.9 mmol/L (3.5-5.1)
[2017-10-30 07:41] LABS: Basophils # (auto) 0 uL; Basophils % (auto) 0.5 % (0.0-2.0); Eosinophils # (auto) 0.2 uL; Eosinophils % (auto) 5.6 % (0.0-7.0); Hematocrit 39.3 % (36.0-46.0); Hemoglobin 12.6 g/dL (12.2-16.2); Lymphocytes # (auto) 0.9 uL; Lymphocytes % (auto) 19.6 % (10.0-50.0); Mean Corpuscular Hemoglobin 28.6 pg (28.0-32.0); Mean Corpuscular Hgb Conc. 32.2 g/dL (32.0-36.0); Mean Corpuscular Volume 88.9 fL (80.0-100.0); Monocytes # (auto) 0.7 uL; Monocytes % (auto) 15.7 % (0.0-12.0); Neutrophils # (auto) 2.6 uL; Neutrophils % (auto) 58.6 % (37.0-80.0); Nucleated Red Blood Cells % 0.1 %; Platelet Count (auto) 139 10^3/uL (140-450); Red Blood Cells 4.42 10^6/uL (4.0-5.20); Red Cell Distribution Width 17.4 % (11.8-14.3); White Blood Cell 4.4 10^3/uL (4.4-10.8)
[2017-10-30 07:42] LABS: Bilirubin, Total 1.2 mg/dL (0.2-1.0); Total Protein 5.8 g/dL (6.4-8.2)
[2017-10-30 08:47] VITALS: BP 121/71
[2017-10-30] MEDS ORDERED: FUROSEMIDE 20 MG TAB PO SCH (10:00)
[2017-10-30] MEDS: CARVEDILOL 3.125 MG TAB PO SCH (10:00)
[2017-10-30] MEDS: FERROUS SULFATE 325 MG TAB PO SCH (10:33)
[2017-10-30] MEDS: APIXABAN 5 MG TAB PO SCH (10:34)
[2017-10-30] MEDS: PANTOPRAZOLE 40 MG TAB PO SCH (10:36)
[2017-10-30] MEDS: FLUoxetine HCL 20 MG CAP PO SCH (10:36)
[2017-10-30] MEDS: MULTIPLE VITAMIN TAB PO SCH (10:36)
[2017-10-30 12:07] VITALS: BP 131/86
[2017-10-30 13:41] VITALS: BP 131/86
== END 2017-10-30 16:10 | disposition home or self-care (01) | DRG 291 ==
LOC: ER 04:31 → TELE 04:32 → TELE-CENTR 18:07
PROVIDERS: ADMIT Internal Medicine; ATTEND Internal Medicine
DX: I13.0 Hypertensive heart and chronic kidney disease with heart failure and stage 1 through stage 4 chronic kidney disease, or unspecified chronic kidney disease (principal); I50.43 Acute on chronic combined systolic (congestive) and diastolic (congestive) heart failure; E44.0 Moderate protein-calorie malnutrition; E11.21 Type 2 diabetes mellitus with diabetic nephropathy; I27.20 Pulmonary hypertension, unspecified; J98.11 Atelectasis; I25.10 Atherosclerotic heart disease of native coronary artery without angina pectoris; E11.22 Type 2 diabetes mellitus with diabetic chronic kidney disease; F41.9 Anxiety disorder, unspecified; F32.9 Major depressive disorder, single episode, unspecified; E78.5 Hyperlipidemia, unspecified; I70.90 Unspecified atherosclerosis; J44.9 Chronic obstructive pulmonary disease, unspecified; I42.9 Cardiomyopathy, unspecified; N18.3 Chronic kidney disease, stage 3 (moderate); Z79.01 Long term (current) use of anticoagulants; Z68.30 Body mass index [BMI] 30.0-30.9, adult; Z86.711 Personal history of pulmonary embolism; Z95.0 Presence of cardiac pacemaker
CPT/HCPCS: 36415; 36600; 71045; 71250; 74176; 80053; 81001; 82805; 82962; 83036; 83735; 83880; 84484; 85025; 87081; 93005; 94640; 96374; J1815; J2270

== ENCOUNTER 2017-11-11 09:57 | Inpatient (IN) | payer MEDICARE, OTHER ==
[~2017-11-11] VITALS: Ht 160 cm; Wt 75.1 kg
[~2017-11-11 09:57] MED LIST changes: -LISI2.5T47 PO
[2017-11-11 10:37] LABS: Basophils # (auto) 0 uL; Basophils % (auto) 0.5 % (0.0-2.0); Eosinophils # (auto) 0.2 uL; Eosinophils % (auto) 2.6 % (0.0-7.0); Hematocrit 40.5 % (36.0-46.0); Hemoglobin 12.8 g/dL (12.2-16.2); Lymphocytes # (auto) 1.6 uL; Mean Corpuscular Hemoglobin 28.2 pg (28.0-32.0); Mean Corpuscular Hgb Conc. 31.7 g/dL (32.0-36.0); Monocytes # (auto) 0.7 uL; Monocytes % (auto) 11.2 % (0.0-12.0); Neutrophils # (auto) 3.4 uL; Neutrophils % (auto) 57.7 % (37.0-80.0); Nucleated Red Blood Cells % 0.2 %; Platelet Count (auto) 140 10^3/uL (140-450); Red Blood Cells 4.55 10^6/uL (4.0-5.20); Red Cell Distribution Width 17.9 % (11.8-14.3); White Blood Cell 5.9 10^3/uL (4.4-10.8)
[2017-11-11 10:59] LABS: Albumin 3.4 g/dL (3.4-5.0); BUN/Creatinine Ratio 24.4; Bilirubin, Total 1.8 mg/dL (0.2-1.0); Calcium 9.2 mg/dL (8.5-10.1); Magnesium 2.2 mg/dL (1.6-2.6); Total Protein 7.3 g/dL (6.4-8.2)
[2017-11-11] MEDS ORDERED: SODIUM CHLORIDE 0.9% 1,000 ML IV ONE (11:17)
[2017-11-11] MEDS ORDERED: ONDANSETRON HCL 4 MG/2 ML VIAL IV ONE (11:30)
[2017-11-11 11:51] LABS: INR 1.32 (0.9-1.15); Partial Thromboplastin Time 30.8 sec (22.64-33.71); Prothrombin Time 14.4 sec (9.37-12.3)
[2017-11-11 12:46] LABS: Urine Bacteria FEW /hpf (None Seen); Urine Blood Negative /uL (Negative); Urine Hyaline Cast MANY /lpf (0 - 2); Urine Mucus FEW (None Seen); Urine Specific Gravity 1.023 (1.001-1.035); Urine WBC 18 /hpf (0 - 5)
[2017-11-11] MEDS ORDERED: LACTULOSE 20Gm/30ML SOLN PO PRN (15:30)
[2017-11-11] MEDS ORDERED: ALBUTEROL SULF 2.5 MG/0.5ML(0.5%) NEB SOLN NEB PRN (15:30)
[2017-11-11] MEDS ORDERED: TEMAZEPAM 15 MG CAP PO PRN (15:30)
[2017-11-11] MEDS ORDERED: PROMETHAZINE HCL 25 MG/ML 1ML IV PRN (15:30)
[2017-11-11] MEDS ORDERED: SPIRONOLACTONE 25 MG TAB PO ONE (15:30)
[2017-11-11] MEDS ORDERED: FUROSEMIDE 40 MG/4 ML VIAL IV ONE (15:30)
[2017-11-11] MEDS ORDERED: NITROGLYCERIN 0.4 MG SL TAB SL PRN (15:30)
[2017-11-11] MEDS ORDERED: DEXTROSE (50%) 50ML SYRG IV PRN (15:30)
[2017-11-11] MEDS ORDERED: MORPHINE SULFATE 4 MG/ML SYR/VIAL IV PRN ×3 (15:30)
[2017-11-11] MEDS ORDERED: cefTRIAXone 1GM/10ml IVPUSH 10 ML IV ONE ×2 (15:30)
[2017-11-11] MEDS ORDERED: LORazepam 0.5 MG TAB PO PRN (15:30)
[2017-11-11 15:38] VITALS: BP 138/101
[2017-11-11] MEDS: PANTOPRAZOLE 40 MG TAB PO SCH (15:48)
[2017-11-11 16:49] LABS: Amylase 41 U/L (25-115); Lipase 259 U/L (73-393)
[2017-11-11] MEDS: ACCU-CHEK COMFORT CURVE STRIP VI SCH (18:00)
[2017-11-11] MEDS ORDERED: ALBUAER3 IN (18:14)
[2017-11-11] MEDS ORDERED: LISI2.5T47 PO (18:14)
[2017-11-11] MEDS: ALBUTEROL SULF 2.5 MG/0.5ML(0.5%) NEB SOLN NEB SCH (18:14)
[2017-11-11 21:48] VITALS: BP 125/85
[2017-11-11] MEDS: APIXABAN 5 MG TAB PO SCH (22:31)
[2017-11-11] MEDS: FERROUS SULFATE 325 MG TAB PO SCH (22:31)
[2017-11-11] MEDS: CARVEDILOL 3.125 MG TAB PO SCH (22:31)
[2017-11-11] MEDS: ATORVASTATIN 20 MG TAB PO SCH (22:31)
[2017-11-11] MEDS: SODIUM CHLOR 0.9% PF (SALINE LOCK) 10ML VIAL/SYR IV SCH (22:32)
[2017-11-11] MEDS: traZODone HCL 50 MG TAB PO SCH (22:33)
[2017-11-12] MEDS: ALBUTEROL SULF 2.5 MG/0.5ML(0.5%) NEB SOLN NEB SCH ×4 (00:25→19:06)
[2017-11-12] MEDS: ACCU-CHEK COMFORT CURVE STRIP VI SCH ×4 (00:26→18:12)
[2017-11-12 05:42] VITALS: BP 110/87
[2017-11-12 06:15] LABS: Albumin 2.8 g/dL (3.4-5.0); BUN/Creatinine Ratio 25.2; Bilirubin, Total 1.2 mg/dL (0.2-1.0); Calcium 8.8 mg/dL (8.5-10.1); Potassium 3.6 mmol/L (3.5-5.1); Total Protein 6.4 g/dL (6.4-8.2)
[2017-11-12] MEDS: FUROSEMIDE 40 MG TAB PO SCH ×2 (06:59→18:00)
[2017-11-12] MEDS: SODIUM CHLOR 0.9% PF (SALINE LOCK) 10ML VIAL/SYR IV SCH ×3 (07:08→21:56)
[2017-11-12 09:00] VITALS: BP 108/69
[2017-11-12] MEDS: Aripiprazole 30 MG PO SCH (10:00)
[2017-11-12] MEDS ORDERED: ENALAPRIL MALEATE 2.5 MG TAB PO SCH (10:00)
[2017-11-12] MEDS: cefTRIAXone 1GM/10ml IVPUSH 10 ML IV SCH (10:50)
[2017-11-12] MEDS: FERROUS SULFATE 325 MG TAB PO SCH ×2 (10:51→21:57)
[2017-11-12] MEDS: CARVEDILOL 3.125 MG TAB PO SCH ×2 (10:52→21:58)
[2017-11-12] MEDS: FLUoxetine HCL 20 MG CAP PO SCH (10:52)
[2017-11-12] MEDS: APIXABAN 5 MG TAB PO SCH ×2 (10:52→21:57)
[2017-11-12] MEDS: PANTOPRAZOLE 40 MG TAB PO SCH (10:52)
[2017-11-12 12:41] VITALS: BP 103/65
[2017-11-12 17:00] VITALS: BP 93/52
[2017-11-12] MEDS: ATORVASTATIN 20 MG TAB PO SCH (21:56)
[2017-11-12] MEDS: traZODone HCL 50 MG TAB PO SCH (21:57)
[2017-11-12 22:00] VITALS: BP 104/56
[2017-11-13] VITALS (7 sets, daily range): BP systolic 85–160; BP diastolic 57–80
[2017-11-13] MEDS: MORPHINE SULFATE 4 MG/ML SYR/VIAL IV PRN ×2 (00:40→18:07)
[2017-11-13] MEDS: ACCU-CHEK COMFORT CURVE STRIP VI SCH ×5 (00:55→23:38)
[2017-11-13] MEDS: FUROSEMIDE 40 MG TAB PO SCH ×2 (06:00→18:07)
[2017-11-13 06:09] LABS: Basophils # (auto) 0.2 uL; Basophils % (auto) 3.7 % (0.0-2.0); Eosinophils # (auto) 0.4 uL; Eosinophils % (auto) 6.3 % (0.0-7.0); Hematocrit 39.1 % (36.0-46.0); Hemoglobin 12.5 g/dL (12.2-16.2); Lymphocytes % (auto) 16.5 % (10.0-50.0); Mean Corpuscular Hemoglobin 28.9 pg (28.0-32.0); Mean Corpuscular Volume 90.1 fL (80.0-100.0); Monocytes # (auto) 0.7 uL; Monocytes % (auto) 11.9 % (0.0-12.0); Neutrophils # (auto) 3.5 uL; Neutrophils % (auto) 61.6 % (37.0-80.0); Nucleated Red Blood Cells % 0.2 %; Platelet Count (auto) 131 10^3/uL (140-450); Red Blood Cells 4.34 10^6/uL (4.0-5.20); Red Cell Distribution Width 18.3 % (11.8-14.3); White Blood Cell 5.8 10^3/uL (4.4-10.8)
[2017-11-13] MEDS: SODIUM CHLOR 0.9% PF (SALINE LOCK) 10ML VIAL/SYR IV SCH ×3 (06:26→22:03)
[2017-11-13] MEDS: ALBUTEROL SULF 2.5 MG/0.5ML(0.5%) NEB SOLN NEB SCH ×4 (06:32→19:05)
[2017-11-13 06:37] LABS: BUN/Creatinine Ratio 19.6; Calcium 8.4 mg/dL (8.5-10.1); Potassium 4.2 mmol/L (3.5-5.1)
[2017-11-13] MEDS: ACETAMINOPHEN 500 MG TAB PO PRN (06:50)
[2017-11-13] MEDS: cefTRIAXone 1GM/10ml IVPUSH 10 ML IV SCH (09:41)
[2017-11-13] MEDS: FERROUS SULFATE 325 MG TAB PO SCH ×2 (09:44→22:02)
[2017-11-13] MEDS: PANTOPRAZOLE 40 MG TAB PO SCH (09:44)
[2017-11-13] MEDS: FLUoxetine HCL 20 MG CAP PO SCH (09:44)
[2017-11-13] MEDS: APIXABAN 5 MG TAB PO SCH ×2 (09:44→22:01)
[2017-11-13] MEDS: Aripiprazole 30 MG PO SCH (09:45)
[2017-11-13] MEDS: CARVEDILOL 3.125 MG TAB PO SCH ×2 (09:45→22:00)
[2017-11-13] MEDS ORDERED: ADENOSINE 63 MG in GIVE UN-DILUTED 0 ML IV STA (11:36)
[2017-11-13] MEDS: traZODone HCL 50 MG TAB PO SCH (22:03)
[2017-11-13] MEDS: ATORVASTATIN 20 MG TAB PO SCH (22:03)
[2017-11-14] MEDS: ALBUTEROL SULF 2.5 MG/0.5ML(0.5%) NEB SOLN NEB SCH ×3 (00:20→11:52)
[2017-11-14] MEDS: ACETAMINOPHEN 500 MG TAB PO PRN (02:54)
[2017-11-14 05:37] VITALS: BP 96/71
[2017-11-14] MEDS: FUROSEMIDE 40 MG TAB PO SCH (05:40)
[2017-11-14] MEDS: SODIUM CHLOR 0.9% PF (SALINE LOCK) 10ML VIAL/SYR IV SCH ×2 (05:40→14:00)
[2017-11-14] MEDS: ACCU-CHEK COMFORT CURVE STRIP VI SCH ×2 (05:41→12:55)
[2017-11-14 07:12] LABS: Basophils # (auto) 0 uL; Basophils % (auto) 0.3 % (0.0-2.0); Eosinophils # (auto) 0.3 uL; Eosinophils % (auto) 6.9 % (0.0-7.0); Hematocrit 38.4 % (36.0-46.0); Hemoglobin 12.5 g/dL (12.2-16.2); Lymphocytes # (auto) 1.1 uL; Lymphocytes % (auto) 22.1 % (10.0-50.0); Mean Corpuscular Hemoglobin 28.9 pg (28.0-32.0); Mean Corpuscular Hgb Conc. 32.5 g/dL (32.0-36.0); Mean Corpuscular Volume 89.1 fL (80.0-100.0); Monocytes # (auto) 0.9 uL; Neutrophils # (auto) 2.7 uL; Neutrophils % (auto) 53.7 % (37.0-80.0); Nucleated Red Blood Cells % 0.2 %; Platelet Count (auto) 132 10^3/uL (140-450); Red Blood Cells 4.31 10^6/uL (4.0-5.20); Red Cell Distribution Width 18.1 % (11.8-14.3); White Blood Cell 5.1 10^3/uL (4.4-10.8)
[2017-11-14 07:38] LABS: BUN/Creatinine Ratio 21.4; Calcium 8.6 mg/dL (8.5-10.1); Potassium 3.9 mmol/L (3.5-5.1)
[2017-11-14 08:00] VITALS: BP 136/106
[2017-11-14] MEDS: cefTRIAXone 1GM/10ml IVPUSH 10 ML IV SCH (09:11)
[2017-11-14] MEDS: APIXABAN 5 MG TAB PO SCH (09:12)
[2017-11-14] MEDS: FLUoxetine HCL 20 MG CAP PO SCH (09:12)
[2017-11-14] MEDS: FERROUS SULFATE 325 MG TAB PO SCH (09:12)
[2017-11-14] MEDS: CARVEDILOL 3.125 MG TAB PO SCH (09:13)
[2017-11-14] MEDS: PANTOPRAZOLE 40 MG TAB PO SCH (09:13)
[2017-11-14] MEDS: Aripiprazole 30 MG PO SCH (09:16)
[2017-11-14 09:35] VITALS: BP 148/64
[2017-11-14 09:40] VITALS: BP 136/106
[2017-11-14 13:00] VITALS: BP 85/68
[2017-11-14 13:04] VITALS: BP 96/61
[2017-11-28] MEDS ORDERED: SACC250C PO (11:30)
[2017-11-28] MEDS ORDERED: AMPI500C8 PO (11:30)
== END 2017-11-14 16:20 | disposition home or self-care (01) | DRG 291 ==
LOC: ER 09:57 → TELE 09:58 → TELE-EAST 17:26
PROVIDERS: ADMIT Internal Medicine; ATTEND Internal Medicine Pulmonary Disease
DX: I13.0 Hypertensive heart and chronic kidney disease with heart failure and stage 1 through stage 4 chronic kidney disease, or unspecified chronic kidney disease (principal); I50.23 Acute on chronic systolic (congestive) heart failure; E11.21 Type 2 diabetes mellitus with diabetic nephropathy; I27.20 Pulmonary hypertension, unspecified; N18.3 Chronic kidney disease, stage 3 (moderate); K76.1 Chronic passive congestion of liver; N39.0 Urinary tract infection, site not specified; I42.9 Cardiomyopathy, unspecified; E11.22 Type 2 diabetes mellitus with diabetic chronic kidney disease; E03.9 Hypothyroidism, unspecified; E78.5 Hyperlipidemia, unspecified; F32.9 Major depressive disorder, single episode, unspecified; F41.9 Anxiety disorder, unspecified; I08.1 Rheumatic disorders of both mitral and tricuspid valves; I25.10 Atherosclerotic heart disease of native coronary artery without angina pectoris; J44.9 Chronic obstructive pulmonary disease, unspecified; Z95.810 Presence of automatic (implantable) cardiac defibrillator; Z79.899 Other long term (current) drug therapy
CPT/HCPCS: 36415; 71046; 76705; 80048; 80053; 80061; 81001; 82150; 82550; 82962; 83036; 83690; 83735; 83880; 84443; 84484; 85025; 85379; 85610; 85652; 85730; 87081; 87086; 93005; 93017; 94640; 94761; 96361; 96374; 96375; J0153; J2405

== ENCOUNTER 2017-11-26 02:56 | Inpatient (IN) | payer MEDICARE, OTHER ==
[~2017-11-26] VITALS: Ht 160 cm; Wt 77.1 kg
[~2017-11-26 02:56] MED LIST changes: +ALBUAER3 IN; -TRAZ100T2 PO
[2017-11-26 04:39] LABS: Basophils # (auto) 0 uL; Basophils % (auto) 0.8 % (0.0-2.0); Eosinophils # (auto) 0.1 uL; Hematocrit 38.8 % (36.0-46.0); Hemoglobin 12.6 g/dL (12.2-16.2); INR 1.38 (0.9-1.15); Lymphocytes % (auto) 17.5 % (10.0-50.0); Mean Corpuscular Hemoglobin 28.6 pg (28.0-32.0); Mean Corpuscular Hgb Conc. 32.4 g/dL (32.0-36.0); Mean Corpuscular Volume 88.1 fL (80.0-100.0); Monocytes # (auto) 0.7 uL; Monocytes % (auto) 12.1 % (0.0-12.0); Neutrophils # (auto) 3.8 uL; Neutrophils % (auto) 68.6 % (37.0-80.0); Nucleated Red Blood Cells % 0.2 %; Partial Thromboplastin Time 26.4 sec (23.78-33.04); Platelet Count (auto) 142 10^3/uL (140-450); Prothrombin Time 14.5 sec (9.27-12.13); Red Blood Cells 4.41 10^6/uL (4.0-5.20); Red Cell Distribution Width 17.4 % (11.8-14.3); White Blood Cell 5.5 10^3/uL (4.4-10.8)
[2017-11-26 04:49] LABS: Albumin 3.2 g/dL (3.4-5.0); BUN/Creatinine Ratio 20.8; Bilirubin, Total 2.3 mg/dL (0.2-1.0); Calcium 9.3 mg/dL (8.5-10.1); Magnesium 2.3 mg/dL (1.6-2.6); Potassium 3.7 mmol/L (3.5-5.1); Total Protein 7.5 g/dL (6.4-8.2)
[2017-11-26] MEDS ORDERED: SODIUM CHLORIDE 0.9% 1,000 ML IV ONE (07:08)
[2017-11-26] MEDS ORDERED: MORPHINE SULFATE 4 MG/ML SYR/VIAL IV ONE (07:15)
[2017-11-26] MEDS ORDERED: PROMETHAZINE HCL 25 MG/ML 1ML IV ONE (07:15)
[2017-11-26] MEDS ORDERED: MORPHINE SULFATE 8mg/ml INJ SDV IV ONE (07:30)
[2017-11-26] MEDS ORDERED: FUROSEMIDE 20 MG/2 ML VIAL IV ONE (07:30)
[2017-11-26 09:41] LABS: Urine Bacteria FEW /hpf (None Seen); Urine Blood Negative /uL (Negative); Urine Hyaline Cast MANY /lpf (0 - 2); Urine Mucus FEW (None Seen); Urine Specific Gravity 1.023 (1.001-1.035); Urine WBC 18 /hpf (0 - 5)
[2017-11-26] MEDS ORDERED: NITROGLYCERIN 0.4 MG SL TAB SL PRN (11:15)
[2017-11-26] MEDS ORDERED: ALBUTEROL SULF 2.5 MG/0.5ML(0.5%) NEB SOLN NEB PRN (11:15)
[2017-11-26] MEDS ORDERED: cefTRIAXone 1GM/10ml IVPUSH 10 ML IV ONE ×2 (11:15)
[2017-11-26] MEDS ORDERED: LORazepam 0.5 MG TAB PO PRN (11:15)
[2017-11-26] MEDS ORDERED: MORPHINE SULFATE 8mg/ml INJ SDV IV PRN ×2 (11:15)
[2017-11-26] MEDS ORDERED: TEMAZEPAM 15 MG CAP PO PRN (11:15)
[2017-11-26] MEDS ORDERED: PROMETHAZINE HCL 25 MG/ML 1ML IV PRN (11:15)
[2017-11-26] MEDS ORDERED: DEXTROSE (50%) 50ML SYRG IV PRN (11:15)
[2017-11-26] MEDS: IPRATROPIUM BROM 0.5 MG/2.5ML INH SOL NEB SCH ×2 (12:15→19:16)
[2017-11-26] MEDS: ALBUTEROL SULF 2.5 MG/0.5ML(0.5%) NEB SOLN NEB SCH ×2 (12:15→19:17)
[2017-11-26] MEDS: FERROUS SULFATE 325 MG TAB PO SCH ×2 (12:36→22:00)
[2017-11-26] MEDS: PANTOPRAZOLE 40 MG TAB PO SCH (12:36)
[2017-11-26] MEDS: APIXABAN 5 MG TAB PO SCH ×2 (12:36→22:00)
[2017-11-26] MEDS: CARVEDILOL 3.125 MG TAB PO SCH ×2 (12:36→22:00)
[2017-11-26] MEDS: ENALAPRIL MALEATE 2.5 MG TAB PO SCH (12:38)
[2017-11-26] MEDS: FLUoxetine HCL 20 MG CAP PO SCH (12:39)
[2017-11-26] MEDS: ACCU-CHEK COMFORT CURVE STRIP VI SCH ×3 (12:44→22:00)
[2017-11-26] MEDS: InsuLIN REG 1unit/0.01ml Soln (100units/ml) SC SCH ×3 (12:44→22:00)
[2017-11-26] MEDS ORDERED: LISI2.5T47 PO (17:18)
[2017-11-26] MEDS: FUROSEMIDE 40 MG/4 ML VIAL IV SCH (17:27)
[2017-11-26 17:36] VITALS: BP 94/70
[2017-11-26 20:00] VITALS: BP 103/61
[2017-11-26 20:39] VITALS: BP 94/70
[2017-11-26 22:00] VITALS: BP 103/61
[2017-11-26] MEDS: ATORVASTATIN 20 MG TAB PO SCH (22:00)
[2017-11-27] MEDS: IPRATROPIUM BROM 0.5 MG/2.5ML INH SOL NEB SCH ×4 (01:00→18:47)
[2017-11-27] MEDS: ALBUTEROL SULF 2.5 MG/0.5ML(0.5%) NEB SOLN NEB SCH ×4 (01:00→18:47)
[2017-11-27] MEDS: MORPHINE SULFATE 8mg/ml INJ SDV IV PRN ×2 (05:35→20:10)
[2017-11-27 05:53] VITALS: BP 102/77
[2017-11-27] MEDS: FUROSEMIDE 40 MG/4 ML VIAL IV SCH ×3 (06:16→18:33)
[2017-11-27] MEDS: ACCU-CHEK COMFORT CURVE STRIP VI SCH ×4 (06:18→22:00)
[2017-11-27] MEDS: InsuLIN REG 1unit/0.01ml Soln (100units/ml) SC SCH ×4 (06:19→22:00)
[2017-11-27 07:08] LABS: Albumin 2.7 g/dL (3.4-5.0); Potassium 4.1 mmol/L (3.5-5.1)
[2017-11-27 07:11] LABS: Bilirubin, Total 1.3 mg/dL (0.2-1.0); Total Protein 6.6 g/dL (6.4-8.2)
[2017-11-27 09:00] VITALS: BP 99/78
[2017-11-27] MEDS: ARIPIPRAZOLE 30 MG PO SCH (10:00)
[2017-11-27] MEDS: ENALAPRIL MALEATE 2.5 MG TAB PO SCH (10:00)
[2017-11-27] MEDS: CARVEDILOL 3.125 MG TAB PO SCH ×2 (10:00→22:00)
[2017-11-27] MEDS: APIXABAN 5 MG TAB PO SCH ×2 (10:51→23:17)
[2017-11-27] MEDS: FERROUS SULFATE 325 MG TAB PO SCH ×2 (10:51→23:18)
[2017-11-27] MEDS: POTASSIUM CHL 20 Meq TABLET PO SCH (10:52)
[2017-11-27] MEDS: FLUoxetine HCL 20 MG CAP PO SCH (10:52)
[2017-11-27] MEDS: ACETAMINOPHEN 500 MG TAB PO PRN ×2 (10:53→12:13)
[2017-11-27] MEDS: PANTOPRAZOLE 40 MG TAB PO SCH (10:53)
[2017-11-27] MEDS: cefTRIAXone 1GM/10ml IVPUSH 10 ML IV SCH (10:54)
[2017-11-27 12:00] VITALS: BP 105/82
[2017-11-27 17:00] VITALS: BP 113/60
[2017-11-27 22:00] VITALS: BP 115/68
[2017-11-27] MEDS: ATORVASTATIN 20 MG TAB PO SCH (22:00)
[2017-11-28] MEDS: IPRATROPIUM BROM 0.5 MG/2.5ML INH SOL NEB SCH ×4 (00:22→12:50)
[2017-11-28] MEDS: ALBUTEROL SULF 2.5 MG/0.5ML(0.5%) NEB SOLN NEB SCH ×4 (00:22→12:50)
[2017-11-28 05:15] VITALS: BP 121/88
[2017-11-28] MEDS: FUROSEMIDE 40 MG/4 ML VIAL IV SCH (06:00)
[2017-11-28] MEDS: InsuLIN REG 1unit/0.01ml Soln (100units/ml) SC SCH ×2 (07:00→11:30)
[2017-11-28] MEDS: ACCU-CHEK COMFORT CURVE STRIP VI SCH ×2 (07:02→11:30)
[2017-11-28 08:20] VITALS: BP 121/88
[2017-11-28 08:39] LABS: Basophils # (auto) 0 uL; Basophils % (auto) 0.5 % (0.0-2.0); Eosinophils # (auto) 0.4 uL; Eosinophils % (auto) 5.8 % (0.0-7.0); Hematocrit 39.1 % (36.0-46.0); Hemoglobin 12.7 g/dL (12.2-16.2); Lymphocytes # (auto) 1.4 uL; Mean Corpuscular Hemoglobin 28.4 pg (28.0-32.0); Mean Corpuscular Hgb Conc. 32.5 g/dL (32.0-36.0); Mean Corpuscular Volume 87.5 fL (80.0-100.0); Monocytes # (auto) 0.6 uL; Monocytes % (auto) 9.8 % (0.0-12.0); Neutrophils # (auto) 3.8 uL; Neutrophils % (auto) 61.9 % (37.0-80.0); Nucleated Red Blood Cells % 0.2 %; Platelet Count (auto) 170 10^3/uL (140-450); Red Blood Cells 4.47 10^6/uL (4.0-5.20); Red Cell Distribution Width 17.1 % (11.8-14.3); White Blood Cell 6.2 10^3/uL (4.4-10.8)
[2017-11-28 08:45] LABS: Albumin 2.9 g/dL (3.4-5.0); BUN/Creatinine Ratio 22.6; Calcium 9.3 mg/dL (8.5-10.1); Magnesium 1.9 mg/dL (1.6-2.6); Potassium 4.2 mmol/L (3.5-5.1)
[2017-11-28 08:50] LABS: Bilirubin, Total 1.4 mg/dL (0.2-1.0); Total Protein 7.3 g/dL (6.4-8.2)
[2017-11-28 09:00] VITALS: BP 117/83
[2017-11-28] MEDS: cefTRIAXone 1GM/10ml IVPUSH 10 ML IV SCH (09:13)
[2017-11-28] MEDS: ENALAPRIL MALEATE 2.5 MG TAB PO SCH (09:14)
[2017-11-28] MEDS: POTASSIUM CHL 20 Meq TABLET PO SCH (09:14)
[2017-11-28] MEDS: PANTOPRAZOLE 40 MG TAB PO SCH (09:14)
[2017-11-28] MEDS: APIXABAN 5 MG TAB PO SCH (09:14)
[2017-11-28] MEDS: CARVEDILOL 3.125 MG TAB PO SCH (09:15)
[2017-11-28] MEDS: FLUoxetine HCL 20 MG CAP PO SCH (09:15)
[2017-11-28] MEDS: FERROUS SULFATE 325 MG TAB PO SCH (09:15)
[2017-11-28] MEDS: ARIPIPRAZOLE 30 MG PO SCH (09:20)
[2017-11-28] MEDS ORDERED: AMPI500C8 PO (11:30)
[2017-11-28] MEDS ORDERED: SACC250C PO (11:30)
[2017-11-28 12:32] VITALS: BP 117/82
[2017-11-28 13:00] VITALS: BP 140/75
== END 2017-11-28 16:10 | disposition home or self-care (01) | DRG 291 ==
LOC: ER 02:56 → TELE 02:57 → TELE-EAST 15:41
PROVIDERS: ADMIT Internal Medicine; ATTEND Internal Medicine
DX: I13.0 Hypertensive heart and chronic kidney disease with heart failure and stage 1 through stage 4 chronic kidney disease, or unspecified chronic kidney disease (principal); I50.23 Acute on chronic systolic (congestive) heart failure; E44.0 Moderate protein-calorie malnutrition; E11.22 Type 2 diabetes mellitus with diabetic chronic kidney disease; I08.1 Rheumatic disorders of both mitral and tricuspid valves; N39.0 Urinary tract infection, site not specified; J44.9 Chronic obstructive pulmonary disease, unspecified; E03.9 Hypothyroidism, unspecified; F32.9 Major depressive disorder, single episode, unspecified; N18.3 Chronic kidney disease, stage 3 (moderate); B95.2 Enterococcus as the cause of diseases classified elsewhere; G47.00 Insomnia, unspecified; E78.5 Hyperlipidemia, unspecified; I25.10 Atherosclerotic heart disease of native coronary artery without angina pectoris; F41.9 Anxiety disorder, unspecified; Z95.810 Presence of automatic (implantable) cardiac defibrillator; Z86.711 Personal history of pulmonary embolism; Z68.30 Body mass index [BMI] 30.0-30.9, adult
CPT/HCPCS: 36415; 71045; 74176; 80053; 81001; 82150; 82550; 82962; 83036; 83690; 83735; 83880; 84443; 84484; 85025; 85610; 85730; 87081; 87086; 87088; 87186; 93005; 94640; 94761; 96361; 96374; 96375; J1815; J2270

== ENCOUNTER → 2018-04-23 | Outpatient (CLI) | payer MEDICARE, OTHER ==
[~2018-04-23] MED LIST changes: +AMPI500C8 PO; +LISI2.5T47 PO; +SACC250C PO
[2018-04-23 09:27] LABS: Cholesterol 144 mg/dL (< 200); HDL Cholesterol 54 mg/dL (40-59); LDL Cholesterol 82 mg/dL (< 100); Triglycerides 75 mg/dL (< 150)
== END | disposition home or self-care (01) ==
LOC: LAB 07:36
PROVIDERS: ATTEND Internal Medicine
DX: I10 Essential (primary) hypertension (principal); E11.9 Type 2 diabetes mellitus without complications; E78.5 Hyperlipidemia, unspecified
CPT/HCPCS: 36415; 80061; 82570; 83036; 85652; 86300